=== PATIENT | female | born 1960 | race Two or more races ===

== ENCOUNTER 2020-03-13 19:49 | Emergency (ER) | payer SELFPAY ==
[~2020-03-13] VITALS: Ht 152.4 cm; Wt 99.8 kg
[2020-03-13 19:58] VITALS: BP 158/99
--- NOTE | 2020-03-13 19:58 | NUR ---
ED Nurse Note: Pt walked in to ED from home c/o mid lower abdominal pain, nausea, vomiting x3 onset today. Pt reports chronic pain due to abdominal hernia but got worse today. Afebrile. No SOB, on room air. AAOX4, verbally responsive. Pt placed on cheerleading coach.
[2020-03-13] MEDS ORDERED: Omnipaque-300 100ml vial INJ PRN (20:15)
--- NOTE | 2020-03-13 20:25 | NUR ---
ED Nurse Note: IV line established. Blood and urine collected, sent to lab.
[2020-03-13 20:44] LABS: BASOPHILS % (AUTO) 0.5 % (0.0-2.0); HEMATOCRIT 50.8 % (37.0-47.0); HEMOGLOBIN 16.4 G/DL (12.0-16.0); LYMPHOCYTES % (AUTO) 19.4 % (20.0-45.0); MEAN CORPUSCULAR VOLUME 86 FL (80-99); MONOCYTES % (AUTO) 4.7 % (1.0-10.0); NEUTROPHILS % (AUTO) 74.4 % (45.0-75.0); PLATELET COUNT 209 K/UL (150-450); RED BLOOD COUNT 5.88 M/UL (4.20-5.40); RED CELL DISTRIBUTION WIDTH 14.1 % (11.6-14.8); WHITE BLOOD COUNT 13.1 K/UL (4.8-10.8)
[2020-03-13 20:54] LABS: ANION GAP 11 mmol/L (5-15); BLOOD UREA NITROGEN 15 mg/dL (7-18); CALCIUM 8.9 MG/DL (8.5-10.1); CARBON DIOXIDE 26 MMOL/L (21-32); CHLORIDE 103 MMOL/L (98-107); CREATININE 0.8 MG/DL (0.55-1.30); POTASSIUM 3.9 MMOL/L (3.5-5.1); SODIUM 140 MMOL/L (136-145)
--- NOTE | 2020-03-13 21:00 | Emergency Room Report ---
History of Present Illness General Chief Complaint: Abdominal Pain Source: Patient (Anitha Briones DO) Present Illness HPI This patient states she has a history of an umbilical hernia. She states that this is been going on for some time. She states occasionally the hernia would become stuck and she can push it in. She states for the past few days she has noticed a hernia stuck and she has been unable to fully push the hernia back in. She has had increasing pain. She states the pain is no longer tolerable. She is also had 2 episodes of vomiting. She denies fever or chills. She denies chest pain or shortness of breath. She denies dysuria hematuria. She states that she has not yet had the hernia repaired because she does not have medical insurance. She has no other complaints. (Anitha Briones DO) Allergies: Coded Allergies: No Known Allergies (Unverified , 03/13/20) COVID-19 Screening Contact w/high risk pt: No Experienced COVID-19 symptoms?: No COVID-19 Testing performed SENIOR BUYER: No (Anitha Briones DO) Patient History Past Medical History: none Past Surgical History: none Social History: Denies: smoking, alcohol use, drug use Reviewed Nursing Documentation: PMH: Agreed; PSxH: Agreed (Anitha Briones DO) Review of Systems All Other Systems: negative except mentioned in HPI (Anitha Briones DO) Physical Exam Vital Signs Date Time Temp Pulse Resp B/P (MAP) Pulse Ox O2 Delivery O2 Flow Rate FiO2 03/13/20 19:54 98.6 87 22 158/99 (118) 99 Room Air Sp02 EP Interpretation: reviewed, normal General Appearance: no apparent distress, alert, GCS 15, non-toxic Head: normocephalic, atraumatic Eyes: bilateral eye normal inspection, bilateral eye PERRL ENT: hearing grossly normal, normal pharynx, no angioedema, normal voice Neck: normal inspection, full range of motion Respiratory: no respiratory distress, no retraction, no accessory muscle use, speaking full sentences Gastrointestinal: soft, non-distended, no rebound, guarding - voluntary, other - tennis ball sized mass palpated at the inferior aspect of the umbilicus. + pain with palpation and light pressure. Rectal: deferred Musculoskeletal: back normal, normal range of motion, gait/station normal, non- tender Neurologic: alert, motor strength/tone normal, oriented x3, sensory intact, responsive, speech normal Psychiatric: judgement/insight normal, memory normal, mood/affect normal, no suicidal/homicidal ideation Skin: no rash, normal color (Anitha Briones DO) Medical Decision Making Diagnostic Impression: Primary Impression: Incarcerated umbilical hernia ER Course This patient has an incarcerated umbilical hernia. I did attempt to reduce the hernia but the patient was unable to tolerate further attempt at reduction. At the time of turnover to Dr. Calhoun, the patient was awaiting evaluation by general surgery and pending admission versus further attempt at a hernia reduction by Dr. Calhoun. Further care and disposition per Dr. Calhoun. Laboratory Tests Test 03/13/20 20:25 03/13/20 22:00 White Blood Count 13.1 K/UL (4.8-10.8) H Red Blood Count 5.88 M/UL (4.20-5.40) H Hemoglobin 16.4 G/DL (12.0-16.0) H Hematocrit 50.8 % (37.0-47.0) H Mean Corpuscular Volume 86 FL (80-99) Mean Corpuscular Hemoglobin 27.9 PG (27.0-31.0) Mean Corpuscular Hemoglobin Concent 32.3 G/DL (32.0-36.0) Red Cell Distribution Width 14.1 % (11.6-14.8) Platelet Count 209 K/UL (150-450) Mean Platelet Volume 11.7 FL (6.5-10.1) H Neutrophils (%) (Auto) 74.4 % (45.0-75.0) Lymphocytes (%) (Auto) 19.4 % (20.0-45.0) L Monocytes (%) (Auto) 4.7 % (1.0-10.0) Eosinophils (%) (Auto) 1.0 % (0.0-3.0) Basophils (%) (Auto) 0.5 % (0.0-2.0) Urine Color Yellow Urine Appearance Slightly cloudy Urine pH 5.0 (4.5-8.0) Urine Specific [place] 1.020 (1.005-1.035) Urine Protein Negative (NEGATIVE) Urine Glucose (UA) Negative (NEGATIVE) Urine Ketones Negative (NEGATIVE) Urine Blood 1+ (NEGATIVE) H Urine Nitrite Negative (NEGATIVE) Urine Bilirubin Negative (NEGATIVE) Urine Urobilinogen Normal MG/DL (0.0-1.0) Urine Leukocyte Esterase 1+ (NEGATIVE) H Urine RBC 0-2 /HPF (0 - 2) Urine WBC 5-10 /HPF (0 - 2) H Urine Squamous Epithelial Cells Many /LPF (NONE/OCC) H Urine Bacteria Few /HPF (NONE) Sodium Level 140 MMOL/L (136-145) Potassium Level 3.9 MMOL/L (3.5-5.1) Chloride Level 103 MMOL/L (98-107) Carbon Dioxide Level 26 MMOL/L (21-32) Anion Gap 11 mmol/L (5-15) Blood Urea Nitrogen 15 mg/dL (7-18) Creatinine 0.8 MG/DL (0.55-1.30) Estimated Glomerular Filtration Rate > 60 mL/min (>60) Glucose Level 134 MG/DL (74-106) H Calcium Level 8.9 MG/DL (8.5-10.1) Total Bilirubin 0.3 MG/DL (0.2-1.0) Aspartate Amino Transferase (AST) 19 U/L (15-37) Alanine Aminotransferase (ALT) 27 U/L (12-78) Alkaline Phosphatase 106 U/L (46-116) Total Protein 8.0 G/DL (6.4-8.2) Albumin 3.7 G/DL (3.4-5.0) Globulin 4.3 g/dL Albumin/Globulin Ratio 0.9 (1.0-2.7) L Lipase 80 U/L (73-393) Lactic Acid Level Pending (Anitha Briones DO) ER Course Patient signed out to me. She presents with incarcerated medical hernia. This has been ongoing for over 2 years. She has been to multiple ER for the same thing. Initially Dr. Cronin was able to reduce the hernia somewhat. Because of the incarceration, she was put in for admission. After giving her some more pain medication and put her in Trendelenburg position, I was able to reduce the hernia completely. Patient felt better. There is no obstruction or incarceration anymore. Patient is stable to be discharged with outpatient follow-up. (Olu Calhoun MD) CT/MRI/US Diagnostic Results CT/MRI/US Diagnostic Results : Imaging Test Ordered: CT abd/pelvis Impression IMPRESSION: 1. The dominant finding is an umbilical hernia which contains dilated fluid-filled small bowel loops and fluid and haziness within the mesenteric fat within the hernia raising concern for strangulation and incarceration. 2. Moreover, there is cholelithiasis with minimal haziness around the gallbladder. Consideration should be given to ultrasound imaging of the right upper quadrant as deemed clinically necessary. 3. No bowel obstruction noted at this time. (Anitha Briones DO) Last Vital Signs Date Time Temp Pulse Resp B/P (MAP) Pulse Ox O2 Delivery O2 Flow Rate FiO2 03/13/20 19:58 87 22 Room Air 03/13/20 19:58 98.6 158/99 99 (Anitha Briones DO) Status: improved (Olu Calhoun MD) Disposition: HOME, SELF-CARE Condition: Stable Scripts Ibuprofen* (MOTRIN*) 600 Mg Tablet 600 MG ORAL Q6H PRN for For Pain, #30 TAB 0 Refills Prov: Olu Calhoun MD 03/14/20 Additional Instructions: Follow-up with your doctor in 7 days. You will need referral to see a surgeon for definitive surgery and treatment. Return if worse. Anitha Briones DO Mar 13, 2020 21:00 Olu Calhoun MD Mar 14, 2020 00:26
[2020-03-13 21:01] LABS: ALANINE AMINOTRANSFERASE 27 U/L (12-78); ALBUMIN 3.7 G/DL (3.4-5.0); ALBUMIN/GLOBULIN RATIO 0.9 (1.0-2.7); ALKALINE PHOSPHATASE 106 U/L (46-116); ASPARTATE AMINO TRANSFERASE 19 U/L (15-37); BILIRUBIN,TOTAL 0.3 MG/DL (0.2-1.0)
[2020-03-13 21:05] LABS: APPEARANCE,URINE SLIGHTLY CLOUDY; BILIRUBIN, URINE NEGATIVE (NEGATIVE); COLOR,URINE YELLOW; GLUCOSE, URINE (UA) NEGATIVE (NEGATIVE); KETONES,URINE NEGATIVE (NEGATIVE); NITRITE,URINE NEGATIVE (NEGATIVE); PROTEIN,URINE NEGATIVE (NEGATIVE)
[2020-03-13 21:06] LABS: LEUKOCYTE ESTERASE ,URINE 1+ (NEGATIVE); UROBILINOGEN,URINE NORMAL MG/DL (0.0-1.0)
[2020-03-13] MEDS ORDERED: Morphine Sulfate 4mg/ml Inj (IV USE ONLY) ONE (21:14)
[2020-03-13] MEDS ORDERED: Morphine Sulfate 4mg/ml Inj (IV USE ONLY) IVP ONE ×2 (21:15→23:45)
--- NOTE | 2020-03-13 21:19 | NUR ---
ED Nurse Note: Pt went down to CT via gurkraig.
--- NOTE | 2020-03-13 21:30 | NUR ---
ED Nurse Note: Pt returned from CT. not in any distress.
--- NOTE | 2020-03-13 21:36 | Diagnostic Imaging Report ---
EXAM: CT Abdomen and Pelvis With Intravenous Contrast CLINICAL HISTORY: PAIN TECHNIQUE: Axial computed tomography images of the abdomen and pelvis with intravenous contrast. CTDI is 15.2 mGy and DLP is 846.3 mGy-cm. One or more of the following dose reduction techniques were used: automated exposure control, adjustment of the mA and/or kV according to patient size, use of iterative reconstruction technique. COMPARISON: None. FINDINGS: Lung bases: Subsegmental atelectasis posteriorly at the lung bases. Heart: Cardiomegaly. Mediastinum: Small hiatal hernia. Probable distal esophagitis. ABDOMEN: Liver: Diffuse fatty infiltration of the liver is noted. Gallbladder and bile ducts: There is cholelithiasis. Possible minimal stranding about the fat surrounding the gallbladder. Ultrasound imaging of the right upper quadrant is advised for further assessment of the gallbladder. No ductal dilation. Pancreas: See below. Spleen: The spleen enhance uniformly. Adrenals: The adrenal glands, the head, body, tail of the pancreas are unremarkable. Kidneys and ureters: Both kidneys are shown to excrete contrast bilaterally without renal calculus or hydronephrosis appeared Stomach and bowel: Moderate quantity of stool throughout the colon. Finding of note is a 10 x 7.8 x 6.8 cm umbilical hernia containing dilated small bowel loop and haziness within the fat within the hernia and minimal fluid concerning for strangulation and early incarceration. No mucosal thickening. PELVIS: Appendix: The appendix is seen on coronal image 30 and is unremarkable. Bladder: Bladder is underdistended. Reproductive: The uterus is unremarkable. ABDOMEN and PELVIS: Intraperitoneal space: Unremarkable. No free air. No significant fluid collection. Bones/joints: Mild to moderate degenerative disc disease of the visualized track the lumbar spine. Moderate to severe osteoarthritic changes about the sacroiliac joints. Alignment of the thoracolumbar spine is unremarkable. Sacrum and coccyx are unremarkable. No acute fracture. Soft tissues: Ischiorectal fat is clean. Vasculature: Flow is demonstrated within the celiac, SMA, the renal arteries, and JUAN JOSE. No abdominal aortic aneurysm. Lymph nodes: No retroperitoneal lymphadenopathy. No pelvic or inguinal lymphadenopathy. IMPRESSION: 1. The dominant finding is an umbilical hernia which contains dilated fluid-filled small bowel loops and fluid and haziness within the mesenteric fat within the hernia raising concern for strangulation and incarceration. 2. Moreover, there is cholelithiasis with minimal haziness around the gallbladder. Consideration should be given to ultrasound imaging of the right upper quadrant as deemed clinically necessary. 3. No bowel obstruction noted at this time.
--- NOTE | 2020-03-13 23:25 | NUR ---
HAND-OFF: Report given to Rachel THORNTON.
--- NOTE | 2020-03-13 23:30 | NUR ---
ED Nurse Note: Report received from HILLARY Rogers. Patient is in bed, NAD.
[2020-03-14] MEDS ORDERED: IBUPROFEN600 M1 ORAL (00:25)
[2020-03-14 00:40] VITALS: BP 135/95
--- NOTE | 2020-03-14 00:40 | NUR ---
ER DISCHARGE NOTE: Patient is cleared to be discharged per ERMD, pt is aox4, on room air, with stable vital signs. pt was given dc and prescription instructions, pt was able to verbalize understanding, pt id band and iv site removed without complications. pt is able to ambulate with steady gait. pt took all belongings.
== END 2020-03-14 00:40 | disposition home or self-care (01) ==
LOC: EMR 21:31 → CANBEDREQ 03-14 00:36 → EMR 03-14 00:40
DX: K42.0 Umbilical hernia with obstruction, without gangrene (principal)
CPT/HCPCS: 36415; 74177; 80053; 81003; 83605; 83690; 85025; 96374; 96375; 96376; 99284; J2270; J2405; Q9965

== ENCOUNTER 2020-06-04 18:41 | Emergency (ER) | payer OTHER, SELFPAY ==
[~2020-06-04] VITALS: Ht 154.9 cm; Wt 97.5 kg
[~2020-06-04 18:41] MED LIST: IBUPROFEN600 M1 ORAL
[2020-06-04 19:15] VITALS: BP 150/78
--- NOTE | 2020-06-04 19:15 | NUR ---
ED Nurse Note: Patient walked in from home d/t umbilical hernia pain 10/, patient also reports n/v, denies diarrhea. Patient aao x 4 and ambulatory. Patient changed into gown and placed on pvc monitor. No acute distress noted during assessment.
[2020-06-04] MEDS ORDERED: Morphine Sulfate 4mg/ml Inj (IV USE ONLY) IVP ONE (19:30)
[2020-06-04] MEDS ORDERED: Omnipaque-300 100ml vial INJ PRN (19:30)
--- NOTE | 2020-06-04 19:47 | Emergency Room Report ---
History of Present Illness General Chief Complaint: Abdominal Pain Source: Patient Present Illness HPI Patient states that she has had an umbilical hernia for several years. She states that at times the hernia will be painful and she will push it back in her abdomen herself. She states that yesterday she was able to push it back in. However, today she has been unable to push the hernia back in and she has severe pain. She did have a bowel movement today. She denies recent illness. She denies cough or congestion. She denies fever or chills. She denies nausea or vomiting. She has no other complaints. Allergies: Coded Allergies: No Known Allergies (Unverified , 03/13/20) COVID-19 Screening Contact w/high risk pt: No Experienced COVID-19 symptoms?: No COVID-19 Testing performed RESIN MIXER: No Patient History Past Medical History: none, see triage record Social History: Denies: smoking, alcohol use, drug use Reviewed Nursing Documentation: PMH: Agreed; PSxH: Agreed Review of Systems All Other Systems: negative except mentioned in HPI Physical Exam Vital Signs Date Time Temp Pulse Resp B/P (MAP) Pulse Ox O2 Delivery O2 Flow Rate FiO2 06/04/20 19:03 98.2 67 17 146/76 (99) 99 Room Air Sp02 EP Interpretation: reviewed, normal General Appearance: no apparent distress, alert, GCS 15, non-toxic Head: normocephalic, atraumatic Eyes: bilateral eye normal inspection ENT: hearing grossly normal, normal pharynx, no angioedema, normal voice Neck: normal inspection, full range of motion Respiratory: chest non-tender, lungs clear, normal breath sounds, no respiratory distress, no retraction, no accessory muscle use, speaking full sentences Cardiovascular #1: regular rate, rhythm, no edema Gastrointestinal: soft, non-distended, no guarding, no rebound, tenderness - TTP over large umbilical hernia, hernia - Large incarcerated umbilical hernia Rectal: deferred Musculoskeletal: back normal, normal range of motion, gait/station normal, non- tender Neurologic: alert, motor strength/tone normal, oriented x3, sensory intact, responsive, speech normal Psychiatric: judgement/insight normal, memory normal, mood/affect normal, no suicidal/homicidal ideation Skin: no rash, normal color Medical Decision Making Diagnostic Impression: Primary Impression: Incarcerated umbilical hernia ER Course This patient has an incarcerated umbilical hernia. I was able to partially reduce the hernia in the emergency department. However, I was unable to completely reduce it. The patient has had these symptoms ongoing daily. The patient will be admitted for surgical evaluation of her incarcerated umbilical hernia. Laboratory Tests Test 06/04/20 19:28 White Blood Count 11.7 K/UL (4.8-10.8) H Red Blood Count 5.87 M/UL (4.20-5.40) H Hemoglobin 16.5 G/DL (12.0-16.0) H Hematocrit 51.4 % (37.0-47.0) H Mean Corpuscular Volume 88 FL (80-99) Mean Corpuscular Hemoglobin 28.2 PG (27.0-31.0) Mean Corpuscular Hemoglobin Concent 32.2 G/DL (32.0-36.0) Red Cell Distribution Width 13.8 % (11.6-14.8) Platelet Count 192 K/UL (150-450) Mean Platelet Volume 9.8 FL (6.5-10.1) Neutrophils (%) (Auto) 74.1 % (45.0-75.0) Lymphocytes (%) (Auto) 18.9 % (20.0-45.0) L Monocytes (%) (Auto) 4.9 % (1.0-10.0) Eosinophils (%) (Auto) 1.2 % (0.0-3.0) Basophils (%) (Auto) 0.9 % (0.0-2.0) Urine Color Pale yellow Urine Appearance Clear Urine pH 6.5 (4.5-8.0) Urine Specific [place] 1.005 (1.005-1.035) Urine Protein Negative (NEGATIVE) Urine Glucose (UA) Negative (NEGATIVE) Urine Ketones Negative (NEGATIVE) Urine Blood Negative (NEGATIVE) Urine Nitrite Negative (NEGATIVE) Urine Bilirubin Negative (NEGATIVE) Urine Urobilinogen Normal MG/DL (0.0-1.0) Urine Leukocyte Esterase Negative (NEGATIVE) Sodium Level 144 MMOL/L (136-145) Potassium Level 3.9 MMOL/L (3.5-5.1) Chloride Level 107 MMOL/L (98-107) Carbon Dioxide Level 28 MMOL/L (21-32) Anion Gap 9 mmol/L (5-15) Blood Urea Nitrogen 14 mg/dL (7-18) Creatinine 0.7 MG/DL (0.55-1.30) Estimated Glomerular Filtration Rate > 60 mL/min (>60) Glucose Level 104 MG/DL (74-106) Calcium Level 8.7 MG/DL (8.5-10.1) Total Bilirubin 0.5 MG/DL (0.2-1.0) Aspartate Amino Transferase (AST) 19 U/L (15-37) Alanine Aminotransferase (ALT) 31 U/L (12-78) Alkaline Phosphatase 95 U/L (46-116) Total Protein 7.8 G/DL (6.4-8.2) Albumin 3.6 G/DL (3.4-5.0) Globulin 4.2 g/dL Albumin/Globulin Ratio 0.9 (1.0-2.7) L Lipase 94 U/L (73-393) CT/MRI/US Diagnostic Results CT/MRI/US Diagnostic Results : Imaging Test Ordered: CT abd/pelvis Impression Impression: 1. Ventral midline periumbilical/infraumbilical abdominal wall hernia of the neck of 3.2 x 2.1 cm. Omental fat, blood vessels in some fluid is seen within it. No bowel loops is present at the current time. The hernia overall measures 9 x 6.4 x 8.7 cm. 2. Left kidney medial superior exophytic 1.8 x 1.8 cm mass. Tumor is not excluded. Further characterization with MRI of the abdomen with contrast is suggested. 3. Stable cholelithiasis within a slightly distended gallbladder. Last Vital Signs Date Time Temp Pulse Resp B/P (MAP) Pulse Ox O2 Delivery O2 Flow Rate FiO2 06/04/20 19:03 98.2 67 17 146/76 (99) 99 Room Air Disposition: ADMITTED INPATIENT Condition: Serious Referrals: NON PHYSICIAN (PCP) Anitha Briones DO Jun 04, 2020 19:46
[2020-06-04 20:08] LABS: BASOPHILS % (AUTO) 0.9 % (0.0-2.0); EOSINOPHILS % (AUTO) 1.2 % (0.0-3.0); HEMATOCRIT 51.4 % (37.0-47.0); HEMOGLOBIN 16.5 G/DL (12.0-16.0); LYMPHOCYTES % (AUTO) 18.9 % (20.0-45.0); MEAN CORPUSCULAR VOLUME 88 FL (80-99); MONOCYTES % (AUTO) 4.9 % (1.0-10.0); NEUTROPHILS % (AUTO) 74.1 % (45.0-75.0); PLATELET COUNT 192 K/UL (150-450); RED BLOOD COUNT 5.87 M/UL (4.20-5.40); RED CELL DISTRIBUTION WIDTH 13.8 % (11.6-14.8); WHITE BLOOD COUNT 11.7 K/UL (4.8-10.8)
[2020-06-04 20:15] LABS: ANION GAP 9 mmol/L (5-15); BLOOD UREA NITROGEN 14 mg/dL (7-18); CALCIUM 8.7 MG/DL (8.5-10.1); CARBON DIOXIDE 28 MMOL/L (21-32); CHLORIDE 107 MMOL/L (98-107); CREATININE 0.7 MG/DL (0.55-1.30); POTASSIUM 3.9 MMOL/L (3.5-5.1); SODIUM 144 MMOL/L (136-145)
[2020-06-04 20:26] LABS: ALANINE AMINOTRANSFERASE 31 U/L (12-78); ALBUMIN 3.6 G/DL (3.4-5.0); ALBUMIN/GLOBULIN RATIO 0.9 (1.0-2.7); ALKALINE PHOSPHATASE 95 U/L (46-116); ASPARTATE AMINO TRANSFERASE 19 U/L (15-37); BILIRUBIN, URINE NEGATIVE (NEGATIVE); BILIRUBIN,TOTAL 0.5 MG/DL (0.2-1.0); COLOR,URINE PALE YELLOW; GLUCOSE, URINE (UA) NEGATIVE (NEGATIVE); KETONES,URINE NEGATIVE (NEGATIVE); LEUKOCYTE ESTERASE ,URINE NEGATIVE (NEGATIVE); NITRITE,URINE NEGATIVE (NEGATIVE); PH,URINE 6.5 (4.5-8.0); PROTEIN,URINE NEGATIVE (NEGATIVE); UROBILINOGEN,URINE NORMAL MG/DL (0.0-1.0)
[2020-06-04 20:27] LABS: APPEARANCE,URINE CLEAR
--- NOTE | 2020-06-04 21:22 | NUR ---
ED Nurse Note: Patient taken to CT in stable condition
--- NOTE | 2020-06-04 22:13 | Diagnostic Imaging Report ---
CT abdomen pelvis with contrast History: Painful umbilical hernia. Technique: Axial contrast-enhanced CT of the abdomen and pelvis with coronal, sagittal reformatted images. Exam: CT ABDOMEN + PELVIS With Contrast Technique more: CTDI is 14.1 mGy and DLP is 756.1 mGy-cm. Technique more: One or more of the following dose reduction techniques were used: automated exposure control, adjustment of the mA and/or kV according to patient size, use of iterative reconstruction technique. Comparison: 03/13/2020 Findings: Lung bases: Normal Distal heart and esophagus: Normal Liver: No intrahepatic lesion or ductal dilation. Gallbladder: Multiple gallbladder stones with a slightly distended gallbladder. Spleen: Normal Pancreas: Normal Adrenals: Normal Kidneys: Normal and symmetric bilateral contrast enhancement. Anterior medial superior left renal 1.8 x 1.8 cm exophytic mass is unchanged. Consider MRI abdomen with contrast. Tumor is suspected. Aorta: Normal caliber. Lymph nodes: Negative. Body wall: Ventral abdominal wall periumbilical/infraumbilical hernia with the neck of 3.2 x 2.1 cm. Omental fat and some fluid is seen extending through the hernia. The hernia measures 9 cm superior inferior 6.4 cm AP and 8.7 cm transverse. No bowel loops is seen in the hernia at the current time. Bowel: Partially distended rectum. Appendix is visualized and normal. Scattered colonic stool. Caliber of the small bowel loops is normal. Stomach is partially distended. Pelvis: Uterus, adnexa are unremarkable. Urinary bladder is unremarkable. Nonenlarged bilateral pelvic sidewall and small inguinal lymph nodes. Bones: No lytic or blastic bony lesion. 2 mm anterior listhesis L5 on S1. Impression: 1. Ventral midline periumbilical/infraumbilical abdominal wall hernia of the neck of 3.2 x 2.1 cm. Omental fat, blood vessels in some fluid is seen within it. No bowel loops is present at the current time. The hernia overall measures 9 x 6.4 x 8.7 cm. 2. Left kidney medial superior exophytic 1.8 x 1.8 cm mass. Tumor is not excluded. Further characterization with MRI of the abdomen with contrast is suggested. 3. Stable cholelithiasis within a slightly distended gallbladder.
--- NOTE | 2020-06-04 23:36 | Emergency Room Report ---
Physical Exam Vital Signs Date Time Temp Pulse Resp B/P (MAP) Pulse Ox O2 Delivery O2 Flow Rate FiO2 06/04/20 19:03 98.2 67 17 146/76 (99) 99 Room Air Medical Decision Making Diagnostic Impression: Primary Impression: Umbilical hernia ER Course Assumed care of the patient from the previous provider at approximately 2300 Please refer to initial note for full history and physical exam. Briefly, 59-year-old female history of ventral hernia presenting for irreducible umbilical hernia. Eventually, the hernia was reduced at bedside by previous physician. Had planned for admission and transfer to [facility] for surgical evaluation. Labs were within normal limits. No incarcerated bowel seen on CT scan. Discussed with patient's assigned daycare teacher who will ar range for outpatient surgical consultation in office tomorrow. Phone number provided to patient and she will be contacted by surgeon's office as well. Patient may be discharged to follow-up on an outpatient basis and obtain surgical consult for repair of ventral hernia though at this time there is no incarceration labs are otherwise within normal limits. Stable for outpatient fo llow-up. Instructed to return with new or worsening symptoms. She understands and agrees with this treatment plan. Laboratory Tests Test 06/04/20 19:28 White Blood Count 11.7 K/UL (4.8-10.8) H Red Blood Count 5.87 M/UL (4.20-5.40) H Hemoglobin 16.5 G/DL (12.0-16.0) H Hematocrit 51.4 % (37.0-47.0) H Mean Corpuscular Volume 88 FL (80-99) Mean Corpuscular Hemoglobin 28.2 PG (27.0-31.0) Mean Corpuscular Hemoglobin Concent 32.2 G/DL (32.0-36.0) Red Cell Distribution Width 13.8 % (11.6-14.8) Platelet Count 192 K/UL (150-450) Mean Platelet Volume 9.8 FL (6.5-10.1) Neutrophils (%) (Auto) 74.1 % (45.0-75.0) Lymphocytes (%) (Auto) 18.9 % (20.0-45.0) L Monocytes (%) (Auto) 4.9 % (1.0-10.0) Eosinophils (%) (Auto) 1.2 % (0.0-3.0) Basophils (%) (Auto) 0.9 % (0.0-2.0) Urine Color Pale yellow Urine Appearance Clear Urine pH 6.5 (4.5-8.0) Urine Specific [place] 1.005 (1.005-1.035) Urine Protein Negative (NEGATIVE) Urine Glucose (UA) Negative (NEGATIVE) Urine Ketones Negative (NEGATIVE) Urine Blood Negative (NEGATIVE) Urine Nitrite Negative (NEGATIVE) Urine Bilirubin Negative (NEGATIVE) Urine Urobilinogen Normal MG/DL (0.0-1.0) Urine Leukocyte Esterase Negative (NEGATIVE) Sodium Level 144 MMOL/L (136-145) Potassium Level 3.9 MMOL/L (3.5-5.1) Chloride Level 107 MMOL/L (98-107) Carbon Dioxide Level 28 MMOL/L (21-32) Anion Gap 9 mmol/L (5-15) Blood Urea Nitrogen 14 mg/dL (7-18) Creatinine 0.7 MG/DL (0.55-1.30) Estimated Glomerular Filtration Rate > 60 mL/min (>60) Glucose Level 104 MG/DL (74-106) Calcium Level 8.7 MG/DL (8.5-10.1) Total Bilirubin 0.5 MG/DL (0.2-1.0) Aspartate Amino Transferase (AST) 19 U/L (15-37) Alanine Aminotransferase (ALT) 31 U/L (12-78) Alkaline Phosphatase 95 U/L (46-116) Total Protein 7.8 G/DL (6.4-8.2) Albumin 3.6 G/DL (3.4-5.0) Globulin 4.2 g/dL Albumin/Globulin Ratio 0.9 (1.0-2.7) L Lipase 94 U/L (73-393) Last Vital Signs Date Time Temp Pulse Resp B/P (MAP) Pulse Ox O2 Delivery O2 Flow Rate FiO2 06/04/20 19:15 98.2 69 18 150/78 99 Room Air Disposition: HOME, SELF-CARE Condition: Stable Referrals: NON PHYSICIAN (PCP) John Trinh MD Jun 04, 2020 23:36
[2020-06-04 23:45] VITALS: BP 139/79
--- NOTE | 2020-06-04 23:45 | NUR ---
ER DISCHARGE NOTE: Patient is cleared to be discharged per ERMD, pt is aox4, on room air, with stable vital signs. pt was given dc instructions, pt was able to verbalize understanding, pt id band and iv site removed intact without complications. pt is able to ambulate with steady gait. pt took all belongings. pt stable upon discharge.
== END 2020-06-04 23:45 | disposition home or self-care (01) ==
LOC: EMR 19:23 → CANBEDREQ 23:39 → EMR 23:45
DX: K42.0 Umbilical hernia with obstruction, without gangrene (principal)
CPT/HCPCS: 36415; 74177; 80053; 81003; 83690; 85025; 96361; 96374; 96375; 99284; J2270; J2405; J7030; Q9965

== ENCOUNTER 2020-06-21 21:16 | Emergency (ER) | payer OTHER ==
[~2020-06-21] VITALS: Ht 152.4 cm; Wt 94.8 kg
--- NOTE | 2020-06-21 21:20 | NUR ---
ED Nurse Note: pt came to the Ed department due to abd pain. Monitor is on and pt is on hopital gown.
--- NOTE | 2020-06-21 21:49 | Emergency Room Report ---
History of Present Illness General Chief Complaint: Abdominal Pain Source: Patient Present Illness HPI Patient presents with umbilical pain. She states today that her umbilical hernia popped out more in the morning. She has had some nausea without vomiting. She moved her bowels in the morning. She is felt chills but no documented fever. She rates the pain an 8/10 at this time. Its sharp and aching and localized to the bellybutton area. This happened once before a few months ago (February this year). We were able to reduce it and she has appointment for surgical correction in 2 weeks time. The patient denies exposure to Covid positive contacts. No sore throat, chest pain, palpitations, dysuria, shortness of breath, joint pain, rashes, depression, anxiety, visual changes, dizziness, headache. 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 Reviewed Nursing Documentation: PMH: Agreed; PSxH: Agreed Nursing Documentation-PMH Past Medical History: No History, Except For Review of Systems All Other Systems: negative except mentioned in HPI Physical Exam Vital Signs Date Time Temp Pulse Resp B/P (MAP) Pulse Ox O2 Delivery O2 Flow Rate FiO2 06/21/20 21:19 97.9 87 18 166/91 (116) 95 Room Air Sp02 EP Interpretation: reviewed, normal General Appearance: well appearing, no apparent distress, GCS 15, obese Head: normocephalic Eyes: bilateral eye normal inspection, bilateral eye PERRL, bilateral eye EOMI ENT: moist mucus membranes Neck: supple Respiratory: lungs clear, normal breath sounds Cardiovascular #1: regular rate, rhythm Cardiovascular #2: 2+ radial (R) Gastrointestinal: normal inspection, soft, no mass, non-distended, no guarding, no rebound, tenderness, hernia - Umbilical Genitourinary: no CVA tenderness Musculoskeletal: back normal, normal range of motion, gait/station normal Neurologic: alert, oriented x3, grossly normal Psychiatric: mood/affect normal Skin: no rash, warm/dry Procedures Additional Procedure Procedure Narrative Reduction of umbilical hernia. First attempt after 4 morphine unsuccessful. Fentanyl 50 mcg given. Direct pressure able to reduce the hernia. Tolerated well and hernia reduced. Medical Decision Making Diagnostic Impression: Primary Impression: Umbilical hernia Qualified Codes: K42.9 - Umbilical hernia without obstruction or gangrene ER Course Patient presents with an umbilical hernia that is popped out more. Differential includes incarceration, nonincarcerated hernia, bowel obstruction, strangulation amongst others. Evaluation with labs. Patient will receive analgesia and ice pack and reduction will be attempted in the emergency department. See procedure note. Patient signed out to Dr. Calhoun after reduction of hernia for review of labs as well as final disposition. Laboratory Tests Test 06/21/20 21:59 White Blood Count 13.5 K/UL (4.8-10.8) H Red Blood Count 6.04 M/UL (4.20-5.40) H Hemoglobin 17.0 G/DL (12.0-16.0) H Hematocrit 50.7 % (37.0-47.0) H Mean Corpuscular Volume 84 FL (80-99) Mean Corpuscular Hemoglobin 28.1 PG (27.0-31.0) Mean Corpuscular Hemoglobin Concent 33.5 G/DL (32.0-36.0) Red Cell Distribution Width 14.6 % (11.6-14.8) Platelet Count 203 K/UL (150-450) Mean Platelet Volume 11.1 FL (6.5-10.1) H Neutrophils (%) (Auto) 75.0 % (45.0-75.0) Lymphocytes (%) (Auto) 17.4 % (20.0-45.0) L Monocytes (%) (Auto) 5.4 % (1.0-10.0) Eosinophils (%) (Auto) 1.5 % (0.0-3.0) Basophils (%) (Auto) 0.7 % (0.0-2.0) Prothrombin Time 11.0 SEC (9.30-11.50) Prothrombin Time INR 1.0 (0.9-1.1) Activated Partial Thromboplast Time 27 SEC (23-33) Sodium Level 136 MMOL/L (136-145) Potassium Level 5.9 MMOL/L (3.5-5.1) H Chloride Level 101 MMOL/L (98-107) Carbon Dioxide Level 28 MMOL/L (21-32) Anion Gap 7 mmol/L (5-15) Blood Urea Nitrogen 20 mg/dL (7-18) H Creatinine 0.5 MG/DL (0.55-1.30) L Estimated Glomerular Filtration Rate > 60 mL/min (>60) Glucose Level 114 MG/DL (74-106) H Calcium Level 8.8 MG/DL (8.5-10.1) Total Bilirubin 0.5 MG/DL (0.2-1.0) Aspartate Amino Transferase (AST) 53 U/L (15-37) H Alanine Aminotransferase (ALT) 34 U/L (12-78) Alkaline Phosphatase 108 U/L (46-116) Total Protein 8.2 G/DL (6.4-8.2) Albumin 3.5 G/DL (3.4-5.0) Globulin 4.7 g/dL Albumin/Globulin Ratio 0.7 (1.0-2.7) L Lipase 78 U/L (73-393) Last Vital Signs Date Time Temp Pulse Resp B/P (MAP) Pulse Ox O2 Delivery O2 Flow Rate FiO2 06/21/20 22:52 97.8 84 18 128/78 95 Room Air 06/21/20 22:00 95 Status: improved Disposition: HOME, SELF-CARE Condition: Improved Roby Kent MD Jun 21, 2020 21:49
[2020-06-21] MEDS: Morphine Sulfate 4mg/ml Inj (IV USE ONLY) IVP ONE (21:54)
[2020-06-21] MEDS: DiphenhydrAMINE 50mg/ml Inj IVP ONE (21:55)
[2020-06-21] MEDS: Metoclopramide 10mg/2ml Inj IVP ONE (21:55)
[2020-06-21] MEDS: Sodium Chloride 550 ML IV SCH (21:55)
[2020-06-21 22:00] VITALS: BP 166/91
--- NOTE | 2020-06-21 22:00 | NUR ---
ED Nurse Note: iv access established. blood collected; sent down to lab.
[2020-06-21] MEDS: fentaNYL 100 mcg/2 mL IV ONE (22:17)
[2020-06-21 22:25] LABS: BASOPHILS % (AUTO) 0.7 % (0.0-2.0); EOSINOPHILS % (AUTO) 1.5 % (0.0-3.0); HEMATOCRIT 50.7 % (37.0-47.0); LYMPHOCYTES % (AUTO) 17.4 % (20.0-45.0); MEAN CORPUSCULAR VOLUME 84 FL (80-99); MONOCYTES % (AUTO) 5.4 % (1.0-10.0); PLATELET COUNT 203 K/UL (150-450); RED BLOOD COUNT 6.04 M/UL (4.20-5.40); RED CELL DISTRIBUTION WIDTH 14.6 % (11.6-14.8); WHITE BLOOD COUNT 13.5 K/UL (4.8-10.8)
[2020-06-21 22:37] LABS: ANION GAP 7 mmol/L (5-15); BLOOD UREA NITROGEN 20 mg/dL (7-18); CALCIUM 8.8 MG/DL (8.5-10.1); CARBON DIOXIDE 28 MMOL/L (21-32); CHLORIDE 101 MMOL/L (98-107); CREATININE 0.5 MG/DL (0.55-1.30); POTASSIUM 5.9 MMOL/L (3.5-5.1); SODIUM 136 MMOL/L (136-145)
[2020-06-21 22:43] LABS: ALANINE AMINOTRANSFERASE 34 U/L (12-78); ALBUMIN 3.5 G/DL (3.4-5.0); ALBUMIN/GLOBULIN RATIO 0.7 (1.0-2.7); ALKALINE PHOSPHATASE 108 U/L (46-116); ASPARTATE AMINO TRANSFERASE 53 U/L (15-37); BILIRUBIN,TOTAL 0.5 MG/DL (0.2-1.0)
--- NOTE | 2020-06-21 22:51 | NUR ---
ER DISCHARGE NOTE: Patient is cleared to be discharged per ERMD, pt is aox4, on room air, with stable vital signs. pt was given dc inst, pt was able to verbalize understanding, pt id band and iv site removed without complications. pt is able to ambulate with steady gait. pt took all belongings.
[2020-06-21 22:52] VITALS: BP 128/78
== END 2020-06-21 22:50 | disposition home or self-care (01) ==
LOC: EMR 22:29
DX: K42.9 Umbilical hernia without obstruction or gangrene (principal)
CPT/HCPCS: 36415; 80053; 83690; 85025; 85610; 85730; 86850; 86900; 86901; 96361; 96374; 96375; 99284; J1200; J2270; J2765; J3010